=== PATIENT | male | born 1960 | race African-American/Black ===

== ENCOUNTER 2016-09-12 14:06 | Outpatient (CLI) | payer OTHER | END 2016-09-12 14:07 | disposition home or self-care (01) | DX: Z00.00 Encounter for general adult medical examination without abnormal findings (principal); Z12.5 Encounter for screening for malignant neoplasm of prostate ==

== ENCOUNTER 2019-08-08 15:16 | Outpatient (CLI) | payer OTHER ==
--- NOTE | 2019-08-09 10:05 | XRAY Report ---
Reason: CERVICAL SPASM Procedure Date: 08/08/2019 Accession Number: [id number] / [id number] Procedure: WCP - Cervical Spine 2 View CPT Code: Final Report FULL RESULT: EXAM: CERVICAL SPINE RADIOGRAPHY EXAM DATE: 08/08/2019 03:16 PM HISTORY: CERVICAL SPASM. COMPARISON: NONE. TECHNIQUE: AP, lateral , open mouth and submental odontoid views, 4 views total FINDINGS: There is reversal of the lordosis centered at C5. C2-C3 and C3-C4 have moderate posterior facet osteoarthritis, greater on the right. C4-C5 has mild disk space narrowing and slight anterolisthesis. Mild posterior facet osteoarthritis noted. C5-C6 and C6-C7 have moderate to severe disk space narrowing with moderate osteophyte formation and mild posterior facet osteoarthritis. C7-T1 has moderate posterior facet osteoarthritis and mild disk space narrowing. Prevertebral soft tissues are unremarkable. IMPRESSION: Multilevel spondylosis and reversal of lordosis as noted. RADIA
== END 2019-08-08 23:59 | disposition home or self-care (01) ==
LOC: DI.WCP 15:16
PROVIDERS: ATTEND Family Medicine
DX: M62.838 Other muscle spasm (principal); M47.812 Spondylosis without myelopathy or radiculopathy, cervical region
CPT/HCPCS: 72040

== ENCOUNTER 2023-05-24 14:35 | Outpatient (CLI) | payer OTHER ==
--- NOTE | 2023-05-24 20:04 | XRAY Report ---
PROCEDURE: Lumbar Spine 2 View INDICATIONS: OTHER LOW BACK PX TECHNIQUE: 2 views of the lumbar spine were acquired. COMPARISON: None. FINDINGS: Bones: 5 [id number] vertebrae are present. There is normal bony alignment. No vertebral body compression fractures. No suspicious bony lesions. Multilevel disc space and degenerative endplate changes. There is mild to moderate multilevel facet hypertrophy. Soft tissues: Overlying bowel gas pattern is normal. No suspicious soft tissue calcifications. IMPRESSION: Moderate multilevel spondylosis. Reviewed by: Virgil Stafford MD on 05/24/2023 8:03 PM PDT Approved by: Virgil Stafford MD on 05/24/2023 8:03 PM PDT Station ID: [id number]
== END 2023-05-24 14:36 | disposition home or self-care (01) ==
LOC: DI 14:35
PROVIDERS: ATTEND Family Medicine
DX: M47.816 Spondylosis without myelopathy or radiculopathy, lumbar region (principal)